=== PATIENT | male | born 1975 | race Hispanic/Latino ===

== ENCOUNTER 2020-08-12 10:18 | Emergency (ER) | payer BC, OTHER ==
--- OUTSIDE RECORDS SUMMARY | 2020-08-12 10:24 | XMS REPORT | Clinical Summary ---
:1975 Author Organization [facility] Address [address] [place] [id number] Care Team Providers Name Role Phone Asked, No Pcp Primary Care Provider Unavailable Allergies No Known Active Allergies Medications Medication Sig Dispensed Refills Start Date End Date Status citalopram (CeleXA) 40 Take 40 mg by 0 Active MG tablet mouth daily. Active Problems Not on file Surgical History Surgery Date Site/Laterality Comments NEPHRECTOMY 10/30/2012 - 10/29/2013 Left partial le ft kidney Medical History Medical History Date Comments Anxiety Cancer (HCC) 2012 left kidney Social History Tobacco Use Types Packs/Day Years Used Date Never Smoker Smokeless Tobacco: Never Used Sex Assigned at Date Recorded Not on file Last Filed Vital Signs Not on file Plan of Treatment Health Maintenance Due Date Last Done Comments INFLUENZA VACCINE 05/30/2020 Results Not on fileafter 08/12/2019 Advance Directives For more information, please contact: [phone] Type Date Recorded Patient Registered Pharmacy Technician Explanati on Advance Directives, Living Will and Medical Power of Veneer Stacker
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
[2020-08-12 11:16] LABS: Absolute Lymphocytes (CBC) 1.6 K/uL (0.7-4.9); Basophils % 0.8 % (0-1.3); Hematocrit 42.9 % (39.6-49.0); Lymphocytes % 16.5 % (15.3-44.8); MPV 8.5 fL (7.6-11.3); RBC Red Blood Cell Count 4.98 M/uL (4.33-5.43)
[2020-08-12 11:28] LABS: Albumin 3.9 g/dL (3.4-5.0); Bilirubin Direct 0.1 mg/dL (0-0.2); Bilirubin Total 0.4 mg/dL (0.2-1.0); Potassium 4.2 mmol/L (3.5-5.1); Protein, Total 7.9 g/dL (6.4-8.2)
--- NOTE | 2020-08-12 11:30 | RAD REPORT ---
EXAM DESCRIPTION: CT - Abdomen Pelvis W Contrast - 08/12/2020 11:14 am CLINICAL HISTORY: rectal bleeding COMPARISON: No comparisons TECHNIQUE: Biphasic, helical CT imaging of the abdomen and pelvis was performed following 100 ml non -ionic IV contrast. No oral contrast administered All CT scans are performed using dose optimization technique as appropriate and may include automated exposure control or mA/KV adjustment according to patient size. FINDINGS: No suspicious findings in the lung bases. In the inferior right lobe a 7 mm enhancing focus seen on the arterial phase becomes isodense on veno us phase imaging. This is probably a small incidental hemangioma. No worrisome liver parenchymal lesi on. Portal vein is unremarkable. Pancreas and gallbladder showed no suspicious findings. No biliary t ree dilatation. No splenic abnormality. Symmetric renal function is seen with no hydronephrosis or suspicious renal mass. No pyelonephritis o r acute parenchymal process. Postsurgical changes are present to the lower pole left kidney matching the partial nephrectomy history. No residual or recurrent abnormality in this location. No adrenal ab normalities. Urinary bladder, prostate gland and seminal vesicles show no suspicious findings. No stomach or small bowel abnormality. The appendix is normal. Patient has minimal colonic diverticul osis without diverticulitis. No colon wall thickening, mass or acute finding seen. Small mucosal lesi ons can be occult on CT imaging. No free air, free fluid or inflammatory stranding. No mass or bulky lymphadenopathy. A small fat on ly umbilical hernia present. No suspicious bony findings. IMPRESSION: Minimal colonic diverticulosis without diverticulitis or acute colon finding. No abnorma lity seen to explain rectal bleeding. Nonacute findings are detailed in the body of the report. No acute or emergent finding seen.
--- NOTE | 2020-08-12 11:41 | ER ---
Nurse's Notes [facility] Name: Russell Gonzalez Age: 45 yrs Sex: Male : 1975 Arrival Date: 08/12/2020 Time: 10:21 Bed 13 Private MD: Diagnosis: Rectal Bleeding;Diverticular disease of intestine Presentation: 08/12 10:30 Chief complaint: Bright red blood in stool and rectal [place] 210 since this morning. hb Coronavirus screen: At this time, the client does not indicate any symptoms associated with coronavirus-19. Ebola Screen: No symptoms or risks identified at this time. Initial Sepsis Screen: Does the patient meet any 2 criteria? No. Patient's initial sepsis screen is negative. Does the patient have a suspected source of infection? No. Patient's initial sepsis screen is negative. Risk Assessment: Do you want to hurt yourself or someone else? Patient reports no desire to harm self or others. Onset of symptoms was August 12, 2020. 10:30 Method Of Arrival: Ambulatory hb 10:30 Acuity: TANA 3 hb Historical: - Allergies: 10:32 No Known Allergies; hb - Home Meds: 10:32 citalopram 40 mg tab 1 tab once daily [Active]; hb - PMHx: 10:32 Depression; hb - PSHx: 10:32 Partial nephrectomy - left; hb - Immunization history:: Adult Immunizations up to date. - Social history:: Smoking status: Patient reports the use of cigarette tobacco products, smokes one-half pack cigarettes per day. Screenin:10 Abuse screen: Denies threats or abuse. Denies injuries from another. Nutritional ss screening: No deficits noted. Tuberculosis screening: Never had TB. Fall Risk None identified. Assessment: 11:10 General: Appears in no apparent distress. comfortable, Behavior is calm, cooperative, ss Denies fever, feeling ill, fatigue, chills. Pain: Denies pain. Neuro: Level of Consciousness is awake, alert, obeys commands, Oriented to person, place, time, situation. Cardiovascular: Capillary refill < 3 seconds is brisk in bilateral fingers. Respiratory: Denies cough, shortness of breath. GI: Abdomen is non-distended, Reports blood in stool x 1 this morning. Pt is unsure whether it was a lot or a little amount of blood Patient currently denies diarrhea, nausea, vomiting. : No signs and/or symptoms were reported regarding the genitourinary system. Denies burning with urination. EENT: Oral mucosa is moist. Throat is clear. Derm: Skin is intact, is healthy with good turgor, Skin is dry, Skin is pink, warm \T\ dry. normal. Musculoskeletal: Circulation, motion, and sensation intact. Range of motion: intact in all extremities, Swelling absent. 11:13 Reassessment: Pt to CT now. ss 11:57 Reassessment: Patient appears in no apparent distress at this time. Patient and/or ss family updated on plan of care and expected duration. Pain level reassessed. Patient is alert, oriented x 3, equal unlabored respirations, skin warm/dry/pink. Patient denies pain at this time. Vital Signs: 10:30 BP 155 / 108; Pulse 76; Resp 16; Temp 97.8; Pulse Ox 98% on R/A; Weight 108.86 kg; hb Height 5 ft. 10 in. (177.80 cm); Pain 2/10; 10:45 BP 148 / 99; ss 10:30 Body Mass Index 34.44 (108.86 kg, 177.80 cm) hb ED Course: 10:21 Patient arrived in ED. ds1 10:23 Ankur Cummings MD is Attending Physician. kdr 10:31 Triage completed. hb 10:32 Arm band placed on. hb 10:44 Pura Morataya, LORENZO is Primary Nurse. ss 11:00 Inserted saline lock: 20 gauge in left antecubital area, using aseptic technique. Blood ss collected. 11:10 Patient has correct armband on for positive identification. Bed in low position. Call ss light in reach. 11:15 CT Abd/Pelvis - IV Contrast Only In Process Unspecified. EDMS 11:57 No provider procedures requiring assistance completed. IV discontinued, intact, ss bleeding controlled, No redness/swelling at site. Pressure dressing applied. Administered Medications: No medications were administered Outcome: 11:40 Discharge ordered by . kdr 11:57 Discharged to home ambulatory. ss 11:57 Condition: good 11:57 Discharge instructions given to patient, Instructed on discharge instructions, follow up and referral plans. Demonstrated understanding of instructions, follow-up care. 11:57 Patient left the ED. ss Signatures: Dispatcher [employer] EDMS Ankur Cummings MD MD [facility] Tressa Dennis ds1 Pura Morataya, RN RN ss Ana Luisa Richardson RN RN hb
--- NOTE | 2020-08-12 11:41 | EDPHYS ---
Physician Documentation [facility] Name: Russell Gonzalez Age: 45 yrs Sex: Male : 1975 Arrival Date: 08/12/2020 Time: 10:21 Bed 13 Private MD: ED Physician Ankur Cummings Historical: - Allergies: 08/12 10:32 No Known Allergies; hb - Home Meds: 10:32 citalopram 40 mg tab 1 tab once daily [Active]; hb - PMHx: 10:32 Depression; hb - PSHx: 10:32 Partial nephrectomy - left; hb - Immunization history:: Adult Immunizations up to date. - Social history:: Smoking status: Patient reports the use of cigarette tobacco products, smokes one-half pack cigarettes per day. Vital Signs: 10:30 BP 155 / 108; Pulse 76; Resp 16; Temp 97.8; Pulse Ox 98% on R/A; Weight 108.86 kg; hb Height 5 ft. 10 in. (177.80 cm); Pain 2/10; 10:45 BP 148 / 99; ss 10:30 Body Mass Index 34.44 (108.86 kg, 177.80 cm) hb MDM: 11:40 Patient medically screened. kdr 08/12 10:44 Order name: Basic Metabolic Panel; Complete Time: 11:29 kdr 08/12 10:44 Order name: CBC with Diff; Complete Time: 11:29 kdr 08/12 10:44 Order name: Hepatic Function; Complete Time: 11:29 kdr 08/12 10:44 Order name: IV Saline Lock; Complete Time: 11:13 kdr 08/12 10:44 Order name: Labs collected and sent; Complete Time: 11:13 kdr 08/12 10:44 Order name: CT Abd/Pelvis - IV Contrast Only; Complete Time: 11:38 kdr Administered Medications: No medications were administered Disposition: 08/12/20 11:40 Discharged to Home. Impression: Rectal Bleeding, Diverticular disease of intestine. - Condition is Stable. - Discharge Instructions: Rectal Bleeding, [id number]. - Medication Reconciliation Form, Thank You Letter form. - Follow up: Private Physician; When: 2 - 3 days; Reason: If symptoms return, Further diagnostic work-up, Recheck today's complaints, Continuance of care, Re-evaluation by your physician. - Problem is new. - Symptoms are resolved. Signatures: Dispatcher [employer] EDMS Ankur Cummings MD MD kdr Pura Morataya RN RN ss Ana Luisa Richardson, LORENZO RN Corrections: (The following items were deleted from the chart) 11:57 11:40 08/12/2020 11:40 Discharged to Home. Impression: Rectal Bleeding; Diverticular ss disease of intestine. Condition is Stable. Forms are Medication Reconciliation Form, Thank You Letter, Antibiotic Education, Prescription Opioid Use. Follow up: Private Physician; When: 2 - 3 days; Reason: If symptoms return, Further diagnostic work-up, Recheck today's complaints, Continuance of care, Re-evaluation by your physician. Problem is new. Symptoms are resolved. kdr
[2020-08-12 12:12] VITALS: TEMP 97.8; O2SAT 98
[2020-08-12 12:13] VITALS: BP 148/99
== END 2020-08-12 11:57 | disposition home or self-care (01) ==
LOC: ER 10:18
DX: K57.30 Diverticulosis of large intestine without perforation or abscess without bleeding (principal); F32.9 Major depressive disorder, single episode, unspecified
CPT/HCPCS: 85025; 80048; 36415; 82565; 80076; 74177; Q9967